=== PATIENT | male | born 1980 | race Caucasian/White ===

== ENCOUNTER 2018-02-27 11:46 | Outpatient (REF) | payer MEDICAID, SELFPAY ==
[2018-02-27 20:52] LABS: Abs Immature Grans 0.01 k/cumm (0.0-0.09); Absolute Basophil Count 0.02 k/cumm (0.0-0.2); Absolute Eosinophil Count 0.11 k/cumm (0.0-0.7); Absolute Lymphocyte Count 1.33 k/cumm (1.2-3.4); Absolute Monocyte Count 0.48 k/cumm (0.11-0.7); Absolute Neutrophil Count 4.13 k/cumm (1.2-6.7); Basophils % 0.3; Eosinophils % 1.8; HCT 39.9 % (40.0-50.0); HGB 12.8 g/dL (13.5-17.5); Immature Grans % 0.2; Lymphocytes % 21.9; Mean Corp. HGB Concentration 32.1 g/dL (32.0-36.0); Mean Corpuscular Volume 90.5 fL (80-95); Mean Platelet Volume 12.4 fL (8.0-11.0); Monocytes % 7.9; Neutrophils % 67.9; Platelet Count 216 x1000/uL (130-400); RBC 4.41 m/cumm (4.50-6.00); RBC Distribution Width 13.4 % (11.8-14.1); White Blood Cell Count 6.08 k/cumm (4.4-10.8)
== END 2018-02-27 11:47 ==
LOC: NCHCN 11:46
PROVIDERS: PCP Specialist/Technologist Athletic Trainer; Visit Provider Specialist/Technologist Athletic Trainer
DX: D53.9 Nutritional anemia, unspecified (principal); Z51.81 Encounter for therapeutic drug level monitoring
CPT/HCPCS: 85025

== ENCOUNTER 2019-07-24 16:51 | Emergency (ER) | payer MEDICAID, SELFPAY ==
[2019-07-24 16:56] VITALS: BP 129/78; PULSE 75; RESP 18; TEMP 36.5; O2SAT 97
--- NOTE | 2019-07-24 17:06 | ED.GENADUL_ITS ---
Discharge Plan Disposition Patient Disposition: HOME Condition: Good Discharge Details Chief Complaint: Laceration Clinical Impression: Laceration of face Primary Care Provider: Vic Martin ED Provider: Gladys Navas Home Meds and New Rx's Prescriptions: Continued Eliquis 5 MG tablet 5 mg PO BID RF: 0 cyclobenzaprine 10 MG tablet 10 mg PO Q8H PRN (Reason: Muscle Spasm) Qty: 13 RF: 0 Discharge Instructions Instructions: Facial Laceration (ED) Additional Instructions: Keep wound clean and dry. Monitor for signs of infection including redness, warmth, drainage, increased pain, fever/chills. If you develop these or other new/worsening symptoms please seek care urgently once again. Sutures are dissolvable and should be out in 1 week. If these do not completely dissolved, you may return to have these removed. Tylenol and/or ibuprofen as needed for discomfort. Referrals: Vic Martin [Primary Care Provider] - Medical Decision Making Patient is a 39-year-old male presenting today with chief complaint of laceration to the lateral aspect of his right eyebrow. Patient reports prior to arrival he was doing dishes when he turned suddenly but suddenly and hit his head against an open cabinet door. Denies loss of consciousness, no headache. Denies any nausea or vomiting. Denies any weakness, visual changes. Unknown last tetanus status. Patient is anticoagulated on Eliquis as he has history of PE. No active bleeding. Last tetanus 2014 On exam, patient has a linear 1.5 cm laceration to lateral aspect of his right eyebrow. This is into subcutaneous tissue. Patient discussed closure options. He declines adhesive and would prefer suture closure. We discussed versus benefits as well as expected procedural steps. Voiced understanding and wished to proceed. Please see procedure note. Patient tolerated procedure well. Wound was copiously irrigated explored to base in bloodless field no foreign body or debris noted. #2 simple interrupted stitches were placed. Discussed wound care in depth. Discussed signs of infection when to seek care urgently once again. All questions and concerns were addressed and is agreement with plan. Ab sorbable stitches were placed. HPI General Mode of arrival: ambulatory . Date/Time Provider Initiated Documentation: 07/24/19 17:06 . Limitations to Documentation: no limitations . Information obtained by: patient, family (large group of family members) and RN notes reviewed . History of Present Illness 39 year old M presents to the emergency department with the chief complaint of laceration above right eyebrow, described as mild, with intensity rated at 3. Quality is described as aching, and is localized to the face. Patient reports no radiation. Patient started experiencing this minute(s) and it has been constant. No relieving factors improve symptom(s), No exacerbating factors reported . Patient notes no other symptoms.. Patient did receive the following treatments prior to arrival, none Related Data Home Medications Medication Instructions Recorded Confirmed Eliquis 5 mg PO BID 12/07/15 07/24/19 cyclobenzaprine 10 mg PO Q8H PRN #13 tab 10/10/17 07/24/19 Previous Rx's Medication Instructions Recorded cyclobenzaprine 10 mg PO Q8H PRN #13 tab 10/10/17 Allergies Allergy/AdvReac Type Severity Reaction Status Date / Time No Known Allergies Allergy Unverified 07/24/19 16:58 General Stated Complaint: Laceration NIRU: 4 Review of Systems Constitutional Constitutional: Reports as per HPI, Denies chills and Denies fever(s) Musculoskeletal Musculoskeletal: Reports as per HPI Integumentary/Breasts Skin/Breast: Reports as per HPI Neurologic Neurologic: Reports as per HPI, Denies sensory deficit and Denies paresthesias [facility] Social History Smoking/Tobacco Use Status: Current every day Drug use: Daily Do you feel safe in your relationship?: Yes Exam Const General: cooperative, healthy appearing, comfortable, no acute distress and well developed Nutritional Appearance: average body habitus and well nourished Orientation: alert and awake [facility] Head: abnormal to inspection, no palpable skull fracture, normocephalic, laceration (facial laceration as drawn below), no palpable skull fracture and no raccoon eyes Head images: 1. 1.5 cm laceration, no FB or debris, deep structures intact. Into subQ tissue. No active bleeding Ears: hearing grossly normal bilaterally Face and sinus: abnormal facial exam (laceration as above, otherwise normal) Resp Effort & Inspection: normal respiratory effort, able to speak in complete sentences and no respiratory distress Cardio Rate: regular rate Rhythm: regular rhythm Skin Trauma: laceration (as above) Neuro General: alert and awake Cognition: normal cognition Speech: speech normal Gait: normal gait Sensory Exam: no sensory deficits noted Psych Appearance: grossly normal and well kempt Mental Status: mental status grossly normal Speech and Movement: speech and movement normal Course Vital Signs Vital signs: Vital Signs Temperature 36.5 C 07/24/19 16:56 Pulse 75 07/24/19 16:56 Respiratory Rate 18 07/24/19 16:56 Blood Pressure 129/78 07/24/19 16:56 Pulse Oximetry 97 07/24/19 16:56 Temperature 36.5 C 07/24/19 16:56 Temperature Source Temporal Artery Scan 07/24/19 16:56 Pulse 75 07/24/19 16:56 Respiratory Rate 18 07/24/19 16:56 Blood Pressure 129/78 07/24/19 16:56 Blood Pressure Position Sitting 07/24/19 16:56 Pulse Oximetry 97 07/24/19 16:56 Oxygen Delivery Method Room Air 07/24/19 16:56 Oxygen Flow Rate 0 07/24/19 16:56 Pain Level 3 07/24/19 16:56 Procedures Laceration Laceration 1: Site: face Side (If applicable): right Size (cm): 1.5 Description: linear Depth: simple, single layer Local Anesthetic: Lidocaine 1% Amount of anesthesia used (mL): 3 Pre-repair: wound explored, irrigated extensively and deep structures intact Skin layer closed with: other (monocryl) Size (cm): 5-0 Number of sutures: 2 Technique: simple, interrupted
== END 2019-07-24 17:49 | disposition home or self-care (01) ==
PROVIDERS: Emergency Provider Physician Assistant; PCP Specialist/Technologist Athletic Trainer
DX: S01.111A Laceration without foreign body of right eyelid and periocular area, initial encounter (principal); W22.09XA Striking against other stationary object, initial encounter; Z79.01 Long term (current) use of anticoagulants
CPT/HCPCS: 12011

== ENCOUNTER 2020-06-06 14:03 | Emergency (ER) | payer MEDICAID, SELFPAY ==
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
[2020-06-06 14:10] VITALS: BP 123/82; PULSE 79; RESP 15; TEMP 36.6; O2SAT 96
--- NOTE | 2020-06-06 14:30 | DI.CT_ITS ---
EXAM: CT CHEST WO CLINICAL HISTORY: fell onto sternum, r/o sternal/rib fx. TECHNIQUE: Imaging Protocol: CT angiography of the chest was performed using pulmonary embolus bernie col. Multi planar reconstructions were performed. CONTRAST MATERIAL: Intravenous: Omnipaque 350 Contrast volume:100 ml Oral: None COMPARISON: CT CHEST FOR PULMONARY EMBOLUS from 10/10/2017 FINDINGS: CHEST: LUNGS:. There is infiltrate in the right lower lobe basal segments posterior basal segment and media l basal segment. No pleural effusion. No pneumothorax. There is also mild infiltrate in the yarn packer ior basal segment of the left lower lobe, also not associated with pleural effusions. Density is see n in the lower right trachea, possibly mucus. No findings in mainstem bronchi. MEDIASTINUM: There is no obvious hilar nor mediastinal adenopathy. No axillary adenopathy. Visualiz ed thyroid unremarkable. Visualized thyroid unremarkable. CARDIAC: Heart size upper normal. No pericardial effusion. Caliber of the thoracic aorta is within normal limits. Visualized upper abdomen: No adrenal mass is evident. OSSEOUS: There is a fracture of the sternum. Mild displacement. This transverse fracture is located 4 centimetres below the angle of Manny. There is a mild retrosternal hematoma at this level. No pe ricardial effusion. . IMPRESSION: 1. There is a mildly displaced transverse fracture of the sternum located 4 centimetres below the ang le of Manny. There is a mild retrosternal hematoma. No pericardial effusion. No pneumothorax. 2. Mild infiltrates in both lung bases but no pleural effusions. Discussed with ER provider following completion of the study 06/06/2020. 3. RADIATION DOSE DELIVERED: 691.51mGy.cm Total DLP DATA REPOSITORY: All CT scans at this facility are submitted to the National Radiology Data Registry (NRDR) Dose Index Registry (DIR) with the [employer] (ACR). RADIATION OPTIMIZATION: All CT scans at this facility use at least one of these dose optimization te chniques: automated exposure control; mA and/or kV adjustment per patient size (includes targeted exa ms where dose is matched to clinical indication); or iterative reconstruction.
[2020-06-06 14:31] VITALS: PULSE 92; RESP 20
[2020-06-06 14:40] VITALS: PULSE 74; RESP 20
[2020-06-06 14:50] VITALS: PULSE 76; RESP 19
--- NOTE | 2020-06-06 15:15 | RT.EKG_ITS ---
APPROVED REPORT Exam: Resting ECG Patient Location: E HR:76 bpm ECG Measurements Heart Rate 76 AXIS [place] 163 P 27 QRSd 99 QRS 50 QT 377 T 3 QTc 425 Conclusion Sinus rhythm...normal P axis, V-rate 60- 99 I have reviewed and interpreted ECG and agree with software generated interpretation.
[2020-06-06 16:09] LABS: Abs Immature Grans 0.05 10^3/uL (0.0-0.06); Absolute Lymphocyte Count 1.48 10^3/uL (1.2-3.4); Absolute Monocyte Count 0.94 10^3/uL (0.1-0.8); Basophils % 0.2; Eosinophils % 0.2; HCT 43.2 % (40.0-50.0); HGB 13.9 g/dL (13.5-17.5); Immature Grans % 0.4; Lymphocytes % 12.3; MCH 29.2 pg (27.0-33.0); MCHC 32.2 % (32.0-36.0); MCV 90.8 fL (80-95); MPV 10.5 fL (8.0-11.0); Monocytes % 7.8; Neutrophils % 79.1; Nucleated RBC 0 %; Platelet Count 174 10^3/uL (130-400); RBC 4.76 10^6/uL (4.36-5.78); RDW 13.3 % (11.8-14.1); RDW-SD 44.6 fL; WBC 12.05 10^3/uL (4.4-10.8)
[2020-06-06 16:25] LABS: ALT 22 U/L (16-63); AST 25 U/L (15-37); Albumin 3.2 g/dL (3.4-5.0); Alkaline Phosphatase 96 U/L (46-116); Anion Gap 3.1 mmol/L (3-11); BUN 9 mg/dL (7-18); Bilirubin, Total 0.4 mg/dL (0.2-1.0); CO2 31.9 mmol/L (21.0-32.0); CREATININE 0.81 mg/dL (0.70-1.30); Calcium 8.9 mg/dL (8.5-10.1); Chloride 101 mmol/L (98-107); Glucose 97 mg/dL (74-106); Sodium 136 mmol/L (136-145); Total Protein 7.4 g/dL (6.4-8.2); Troponin I < 0.05 ng/mL (<0.06)
[2020-06-06 16:27] LABS: Absolute Basophil Count 0.02 10^3/uL (0.0-0.2); Absolute Eosinophil Count 0.02 10^3/uL (0.0-0.7); Absolute Neutrophil Count 9.53 10^3/uL (1.2-6.7)
[2020-06-06 16:29] LABS: ETHANOL BLOOD < 3.0 mg/dL (<3)
--- NOTE | 2020-06-06 16:30 | NUR.NOTE ---
pt admitted to nurse that he has slipped and has been using heroin . he did not want us to see his arms Nursing Note:
--- NOTE | 2020-06-06 16:35 | DI.VRAD_ITS ---
PROCEDURE INFORMATION: Exam: CT Chest Without Contrast; Diagnostic Exam date and time: 06/06/2020 3:00 PM Age: 40 years old Clinical indication: Injury or trauma; Blunt trauma (contusions or hematomas); Patient HX: Fall onto sternum; Additional info: R/O sternal/rib FX TECHNIQUE: Imaging protocol: Diagnostic computed tomography of the chest without contrast. COMPARISON: CT CHEST FOR PULMONARY EMBOLUS 10/10/2017 6:29 PM FINDINGS: Lungs: Linear scarring versus atelectasis in the lower lobes. Pleural space: No pleural effusion or pneumothorax. Heart: Unremarkable. No pericardial effusion. Mediastinal space: Approximately 9.3 x 0.4 x 0.7 cm retrosternal hematoma. Aorta: Unremarkable. Lymph nodes: No enlarged lymph nodes. Bones/joints: Mildly displaced acute mid sternal body fracture with approximately 0.3 cm posterior displacement. Soft tissues: Prominent subcutaneous fat stranding in the presternal midline chest soft tissues, likely contusion. IMPRESSION: 1. Mildly displaced acute mid sternal body fracture with approximately 0.3 cm posterior displacement. 2. Approximately 9.3 x 0.4 x 0.7 cm retrosternal hematoma. Dictated and Authenticated by: Olvin Mccabe MD. Ordering:JEWELL Gaines MD
== END 2020-06-06 16:58 | disposition left against medical advice (07) ==
PROVIDERS: Emergency Provider Physician Assistant; PCP Family Medicine
DX: S22.22XA Fracture of body of sternum, initial encounter for closed fracture (principal); W01.190A Fall on same level from slipping, tripping and stumbling with subsequent striking against furniture, initial encounter; Z53.29 Procedure and treatment not carried out because of patient's decision for other reasons; Z86.711 Personal history of pulmonary embolism; Z79.01 Long term (current) use of anticoagulants; F11.10 Opioid abuse, uncomplicated
CPT/HCPCS: 36415; 71250; 80053; 93005; 99284; 80320; 83735; 84484; 85025; 93010; 99285

== ENCOUNTER 2023-12-31 10:04 | Outpatient (REF) | payer MEDICAID, SELFPAY ==
--- OUTSIDE RECORDS SUMMARY | 2024-01-01 10:06 | XMS_ITS | Continuity of Care Document ---
Author Name Unknown Organization [facility] Address [address] [place] [address] Encounter LTTL_NC FIN NBR [id number] Date(s): 08/08/23 - 08/08/23 [facility] [address] [place] [address]- Encounter Diagnosis Abscess of lip(Discharge Diagnosis) - 08/08/23 Diseases of lips(Final) - Nicotine dependence, cigarettes, uncomplicated(Final) - Discharge Disposition: Home or Self Care Attending Physician: Jun Pena MD Admitting Physician: Jun Pena MD Allergies, Adverse Reactions, Alerts No Known Medication Allergies Assessment and Plan Extracted from: Title:ED Provider Note Author:PETTY Gibson RN Date:08/08/23 Assessment/Plan 1.??Abscess of lip??K13.0 Orders: Bactrim DS 800 mg-160 mg oral tablet, 1 tab, Oral, every 12 hr, X 10 days, # 20 tab, 0 Refill(s), 08/18/23 17:47:00 EST, Pharmacy: [id number], 182.88, cm, 08/08/23 17:10:00 EST, Height, 97.52, kg, 08/08/23 17:15:00 EST, Weight Dosing Bactrim DS 800 mg-160 mg oral tablet, 1 tab, Oral, Tab, BID for 30 days, Antibiotic Indication Skin/soft tissue, wound infection, First Dose: 08/08/23 21:00:00 EST, Stop Date: 09/07/23 20:59:00 EST, Physician Stop, Routine Wound Culture, Abscess, Lip, Stat collect, ST - Stat, 08/08/23 17:44:00 EST, Once, Nurse collect, Print Label Patient Education Skin Abscess Functional Status 08/08/23 Family Member Travel History No recent t ravel Recent Travel History No recent travel Other exposure to Infectious Disease Non e Medications Bactrim DS 800 mg-160 mg oral tablet 1 tab, Oral, every 12 hr, X 10 days, # 20 tab, 0 Refill(s), 08/18/23 4:47:00 PM ROD POINTER, Pharmacy: [id number], 182.88, cm, 08/08/23 17:10:00 EST, Height, 97.52, kg, 08/08/23 17:15:00 EST, Weight Dosing Start Date: 08/08/23 Stop Date: 08/18/23 Status: Ordered cephalexin 500 mg oral capsule 500 mg = 1 cap, Oral, Daily, X 7 days, # 28 cap, 0 Refill(s), 08/15/23 7:59:00 AM ROD POINTER Start Date: 08/08/23 Stop Date: 08/15/23 Status: Ordered Eliquis 5 mg oral tablet 3, Oral, BID, # 60 tab, 0 Refill(s) Start Date: 08/08/23 Status: Ordered valACYclovir 1 g oral tablet 1 g = 1 tab, Oral, every 12 hr, X 7 days, # 14 tab, 0 Refill(s), 08/15/23 4:15:00 PM ROD POINTER Start Date: 08/08/23 Stop Date: 08/15/23 Status: Ordered Mental Status 08/08/23 Eye Opening Response [place] Spontaneous ly Best Verbal Response [place] Oriented Best Motor Response [place] Obeys comman ds [place] Coma Score 15 Results Orders for Microbiology Reports Name Date Wound Culture 08/08/23 Microbiology Reports TEST:Wound Culture STATUS:Order in Progress BODY SITE:Lip SOURCE:Abscess COLLECTED DATE/TIME:08/08/23 5:45 PM PRELIMINARY REPORT Many Gram Positive Cocci Presumptive MRSA STAIN REPORT Moderate White Blood Cells Rare Gram Positive Cocci Vital Signs Most recent to oldest [Reference Range]: 1 Temperature Temporal Artery [36-38 Deg C ] 36.3 Deg C (08/08/23 4:55 PM) Peripheral Pulse Rate [60-100 bpm] 82 bp m (08/08/23 4:55 PM) Respiratory Rate [12-24 br/min] 16 br/mi n (08/08/23 4:55 PM) Blood Pressure [90-140/60-90 mmHg] 145/9 1mmHg *HI* (08/08/23 4:55 PM) Mean Arterial Pressure, Cuff [70-110 mmH g] 109 mmHg (08/08/23 4:55 PM) Weight 97.52 kg (08/08/23 4:55 PM) Weight Dosing 97.520 kg (08/08/23 4:55 PM) Height 182.88 cm (08/08/23 4:55 PM) Body Mass Index 29.16 kg/m2 (08/08/23 4:55 PM) Social History Social History Type Response Tobacco Current everyday tob acco user Tobacco Use:. 1ppd per day. Sex Hospital Discharge Instructions Patient Education 08/08/2023 16:48:44 Skin Abscess Skin Abscess A skin abscess is an infected area on or under your skin that contains a collection of pus and other material. An abscess may also be called a furuncle, carbuncle, or boil. An abscess can occur in oron almost any part of your body. Some abscesses break open (rupture) on their own. Most continue to get worse unless they are treated. The infection can spread deeper into the body and eventually into your blood, which can make you feel ill. Treatment usually involves draining the abscess. What are the causes? An abscess occurs when germs, like bacteria, pass through your skin and cause an infection. This may be caused by: ??? A scrape or cut on your skin. ??? A puncture wound through your skin, including a needle injection or insect bite. ??? Blocked oil or sweat glands. ??? Blocked and infected hair follicles. ??? A cyst that forms beneath your skin (sebaceous cyst) and becomes infected. What increases the risk? This condition is more likely to develop in people who: ??? Have a weak body defense system (immune system). ??? Have diabetes. ??? Have dry and irritated skin. ??? Get frequent injections or use illegal IV drugs. ??? Have a foreign body in a wound, such as a splinter. ??? Have problems with their lymph system or veins. What are the signs or symptoms? Symptoms of this condition include: ??? A painful, firm bump under the skin. ??? A bump with pus at the top. This may break through the skin and drain. Other symptoms include: ??? Redness surrounding the abscess site. ??? Warmth. ??? Swelling of the lymph nodes (glands) near the abscess. ??? Tenderness. ??? A sore on the skin. How is this diagnosed? This condition may be diagnosed based on: ??? A physical exam. ??? Your medical history. ??? A sample of pus. This may be used to find out what is causing the infection. ??? Blood tests. ??? Imaging tests, such as an ultrasound, CT scan, or MRI. How is this treated? A small abscess that drains on its own may not need treatment. Treatment for larger abscesses may include: ??? Moist heat or heat pack applied to the area several times a day. ??? A procedure to drain the abscess (incision and drainage). ??? Antibiotic medicines. For a severe abscess, you may first get antibiotics through an IV and then change to antibiotics by mouth. Follow these instructions at home: Medicines ??? Take pnfo-bdn-idsgvln and prescription medicines only as told by your health care provider. ??? If you were prescribed an antibiotic medicine, take it as told by your health care provider. Donot stop taking the antibiotic even if you start to feel better. Abscess care ??? If you have an abscess that has not drained, apply heat to the affected area. Use the heat source that your health care provider recommends, such as a moist heat pack or a heating pad. ??? Place a towel between your skin and the heat source. ??? Leave the heat on for 20???30 minutes. ??? Remove the heat if your skin turns bright red. This is especially important if you are unable to feel pain, heat, or cold. You may have a greater risk of getting burned. ??? Follow instructions from your health care provider about how to take care of your abscess. Makesure you: ??? Cover the abscess with a bandage (dressing). ??? Change your dressing or gauze as told by your health care provider. ??? Wash your hands with soap and water before you change the dressing or gauze. If soap and water are not available, use hand mutual fund analyst. ??? Check your abscess every day for signs of a worsening infection. Check for: ??? More redness, swelling, or pain. ??? More fluid or blood. ??? Warmth. ??? More pus or a bad smell. General instructions ??? To avoid spreading the infection: ??? Do not share personal care items, towels, or hot tubs with others. ??? Avoid making skin contact with other people. ??? Keep all follow-up visits as told by your health care provider. This is important. Contact a health care provider if you have: ??? More redness, swelling, or pain around your abscess. ??? More fluid or blood coming from your abscess. ??? Warm skin around your abscess. ??? More pus or a bad smell coming from your abscess. ??? Muscle aches. ??? Chills or a general ill feeling. Get help right away if you: ??? Have severe pain. ??? See red streaks on your skin spreading away from the abscess. ??? See redness that spreads quickly. ??? Have a fever or chills. Summary ??? A skin abscess is an infected area on or under your skin that contains a collection of pus and other material. ??? A small abscess that drains on its own may not need treatment. ??? Treatment for larger abscesses may include having a procedure to drain the abscess and taking an antibiotic. This information is not intended to replace advice given to you by your health care provider. Make sure you discuss any questions you have with your health care provider. Document Revised: 03/26/2022 Document Reviewed: 03/26/2022 Elsevier Patient Education ?? 2022 [employer] Discharge instructions * Event Display: Discharge Instructions Physician Emergency department Note * Catherine Shelley APRN: PERFORM Event Display: ED Note Physician Authored Date: [id number] ANTOINE HAIRSTON :1980 Age:43 years Sex:Male Visit Date:08/08/2023 Basic Information Time Seen: Catherine Shelley APRN / 08/08/2023 17:12 Chief Complaint Pt had a pimple on his lower lip saturday that he popped, saturday morning he noticed swelling. It has worsened throughout the week. Saturday he went to pcp and was rx abx. Feels that it is worse today and was told to come to ER. History Of Present Illness: Patient is a 43-year-old male who presents today with a chief complaint??of increased pain??of his lower lip and swelling. ??He reports on Saturday he noted a small lemus??to the??lower lip which he popped. ??He states awakening Saturday morning with increased swelling he was evaluated??on Saturday at his??primary care office after he was having worsening pain and swelling. ??He was started on valacyclovir and cephalexin. ??He states that he has??not noted improvement and comes for evaluation. Review of Systems: see hpi Physical Exam Vitals & Measurements T:??36.3?C ??(Temporal Artery)?? HR:??82??(Peripheral)?? RR:??16?? BP:??145/91?? SpO2:??100%?? HT:??182.88??cm?? WT:??97.52??kg?? BMI:??29.16?? Pain Score:??6?? O2 Therapy:??Room air?? Left lower lip and is??markedly swollen, positive exudate??from open area of the right??lower lip Medical Decision Making: Patient was evaluated for abscess to the lower lip. ??He has been on cephalexin and valacyclovir for a few days, substantial swelling erythema, positive fluctuance, small incision was made to the lipsee procedural documentation. ??Expressed moderate amount of purulent discharge, culture is??pending. ??He was started on Bactrim I encouraged him to do warm compresses take acetaminophen/ibuprofen for pain??and follow-up with his primary care. ??Return precautions were provided Procedure PROCEDURE NOTE: Incision and Drainage of??Abscess? Performed by: Self Indication:??Abscess? [place] Protocol: Time out was performed. Patient, side, site and procedure was verified. ? The affected location was anesthetized with??1% lidocaine??local anesthesia and the abscess was incised using an??11??-blade scalpel,?2mls of??purulent??material was expressed. Loculations were broken up using blunt dissection and the cavity irrigated. The patient tolerated the procedure well and there were no apparent complications. A sterile dressing was applied. ? Ultrasound guided:??No? Cultures Obtained:??Yes No Qualifying Data Assessment/Plan 1.??Abscess of lip??K13.0 Orders: Bactrim DS 800 mg-160 mg oral tablet, 1 tab, Oral, every 12 hr, X 10 days, # 20 tab, 0 Refill(s), 08/18/23 17:47:00 EST, Pharmacy: [id number], 182.88, cm, 08/08/23 17:10:00 EST, Height, 97.52, kg, 08/08/23 17:15:00 EST, Weight Dosing Bactrim DS 800 mg-160 mg oral tablet, 1 tab, Oral, Tab, BID for 30 days, Antibiotic Indication Skin/soft tissue, wound infection, First Dose: 08/08/23 21:00:00 EST, Stop Date: 09/07/23 20:59:00 EST, Physician Stop, Routine Wound Culture, Abscess, Lip, Stat collect, ST - Stat, 08/08/23 17:44:00 EST, Once, Nurse collect, Print Label Patient Education Skin Abscess Medication Reconciliation New Prescription sulfamethoxazole-trimethoprim (Bactrim DS 800 mg-160 mg oral tablet)1 tab Oral (given by mouth) every 12 hours for 10 Days. Refills: 0. ?? Unchanged apixaban (Eliquis 5 mg oral tablet)3 Oral (given by mouth) 2 times a day. ?? cephalexin (cephalexin 500 mg oral capsule)1 Capsules Oral (given by mouth) every day for 7 Days. ?? valACYclovir (valACYclovir 1 g oral tablet)1 tab Oral (given by mouth) every 12 hours for 7 Days. Problem List/Past Medical History Ongoing Tobacco user Historical No qualifying data Medication Administration Given Bactrim DS 800 mg-160 mg oral tablet, 1 tab, Oral Allergies No Known Medication Allergies Social History Alcohol Current, Beer, 1-2 times per month Electronic Cigarette/Vaping Electronic Cigarette Use: Never. Substance Use Current, Marijuana, Daily Tobacco Current everyday tobacco user Tobacco Use:. 1ppd per day. Electronically Signed on 08/08/23 06:07 PM Catherine Shelley APRN Emergency department Discharge instructions * Catherine Shelley APRN: PERFORM Event Display: ED Discharge Information Authored Date: [id number] ANTOINE HAIRSTON :1980 Age:43 years Sex:Male Visit Date:08/08/2023 Discharge Instructions We would like to thank you for allowing us to assist you with your healthcare needs. The following includes patient education materials and information regarding your injury/illness. Discharge Vitals Temperature??(Temporal Artery) 97.3 ??F (36.3 ??C) Heart Rate??(Peripheral) 82 Respiratory Rate?? 16 Blood Pressure?? 145/91?? Height?? 72.00 in (182.88 cm) Weight?? 215.03 lb (97.52 kg) BMI?? 29.16 Allergies No Known Medication Allergies What to Do Next Instructions from Your Care Team Continue warm compresses to the lip, Tylenol or ibuprofen for pain or fever.?? Bactrim DS 1 tab p.o. twice daily for 10 days, you the valacyclovir. ??Follow-up with your primary care for lack of improvement. ??Seek urgent or emergent care for any worsening or concerning symptoms such as fever, increased pain or swelling or any other concerns. You were treated today on an emergency basis; it may be mckinley to contact your primary care provider to notify them of your visit today. You may have been referred to your regular doctor or a specialist, please follow up as instructed. If your condition worsens or you can't get in to see the doctor, contact the Emergency Department. Medications What How Much When Instructions Next Dose New sulfamethoxazole-trimethoprim (Bactrim DS 800 mg-160 mg oral tablet) 1 tab Oral (given by mouth) Every 12 hours Duration: 10 Days Pickup at [facility] Unchanged apixaban (Eliquis 5 mg oral tablet) 3 Oral (given by mouth) 2 times a day Unchanged cephalexin (cephalexin 500 mg oral capsule) 1 Capsules Oral (given by mouth) Every day Duration: 7 Days Unchanged valACYclovir (valACYclovir 1 g oral tablet) 1 tab Oral (given by mouth) Every 12 hours Duration: 7 Days Pharmacy Information [facility]: [address], [place] [id number] [phone] Education Materials Skin Abscess A skin abscess is an infected area on or under your skin that contains a collection of pus and other material. An abscess may also be called a furuncle, carbuncle, or boil. An abscess can occur in oron almost any part of your body. Some abscesses break open (rupture) on their own. Most continue to get worse unless they are treated. The infection can spread deeper into the body and eventually into your blood, which can make you feel ill. Treatment usually involves draining the abscess. What are the causes? An abscess occurs when germs, like bacteria, pass through your skin and cause an infection. This may be caused by: ? A scrape or cut on your skin. ? A puncture wound through your skin, including a needle injection or insect bite. ? Blocked oil or sweat glands. ? Blocked and infected hair follicles. ? A cyst that forms beneath your skin (sebaceous cyst) and becomes infected. What increases the risk? This condition is more likely to develop in people who: ? Have a weak body defense system (immune system). ? Have diabetes. ? Have dry and irritated skin. ? Get frequent injections or use illegal IV drugs. ? Have a foreign body in a wound, such as a splinter. ? Have problems with their lymph system or veins. What are the signs or symptoms? Symptoms of this condition include: ? A painful, firm bump under the skin. ? A bump with pus at the top. This may break through the skin and drain. Other symptoms include: ? Redness surrounding the abscess site. ? Warmth. ? Swelling of the lymph nodes (glands) near the abscess. ? Tenderness. ? A sore on the skin. How is this diagnosed? This condition may be diagnosed based on: ? A physical exam. ? Your medical history. ? A sample of pus. This may be used to find out what is causing the infection. ? Blood tests. ? Imaging tests, such as an ultrasound, CT scan, or MRI. How is this treated? A small abscess that drains on its own may not need treatment. Treatment for larger abscesses may include: ? Moist heat or heat pack applied to the area several times a day. ? A procedure to drain the abscess (incision and drainage). ? Antibiotic medicines. For a severe abscess, you may first get antibiotics through an IV and then change to antibiotics by mouth. Follow these instructions at home: Medicines ? Take kcww-jic-pbberbm and prescription medicines only as told by your health care provider. ? If you were prescribed an antibiotic medicine, take it as told by your health care provider. Do notstop taking the antibiotic even if you start to feel better. Abscess care ? If you have an abscess that has not drained, apply heat to the affected area. Use the heat source that your health care provider recommends, such as a moist heat pack or a heating pad. ? Place a towel between your skin and the heat source. ? Leave the heat on for 20???30 minutes. ? Remove the heat if your skin turns bright red. This is especially important if you are unable to feel pain, heat, or cold. You may have a greater risk of getting burned. ? Follow instructions from your health care provider about how to take care of your abscess. Make sure you: ? Cover the abscess with a bandage (dressing). ? Change your dressing or gauze as told by your health care provider. ? Wash your hands with soap and water before you change the dressing or gauze. If soap and water are not available, use hand mutual fund analyst. ? Check your abscess every day for signs of a worsening infection. Check for: ? More redness, swelling, or pain. ? More fluid or blood. ? Warmth. ? More pus or a bad smell. General instructions ? To avoid spreading the infection: ? Do not share personal care items, towels, or hot tubs with others. ? Avoid making skin contact with other people. ? Keep all follow-up visits as told by your health care provider. This is important. Contact a health care provider if you have: ? More redness, swelling, or pain around your abscess. ? More fluid or blood coming from your abscess. ? Warm skin around your abscess. ? More pus or a bad smell coming from your abscess. ? Muscle aches. ? Chills or a general ill feeling. Get help right away if you: ? Have severe pain. ? See red streaks on your skin spreading away from the abscess. ? See redness that spreads quickly. ? Have a fever or chills. Summary ? A skin abscess is an infected area on or under your skin that contains a collection of pus and other material. ? A small abscess that drains on its own may not need treatment. ? Treatment for larger abscesses may include having a procedure to drain the abscess and taking an antibiotic. This information is not intended to replace advice given to you by your health care provider. Make sure you discuss any questions you have with your health care provider. Document Revised: 03/26/2022 Document Reviewed: 03/26/2022 [employer] Patient Education ?? 2022 [employer]. Patient/Soft Hat Binder Signature Patient Name:ANTOINE HAIRSTON I have received this information and my questions have been answered. Patient/Soft Hat Binder Name: Patient/Soft Hat Binder Signature: Relationship to Patient: Witness Name/Signature: [facility] Signed on: 08/08/2023 17:49 ESTSigned by:KATHARINA
== END 2023-12-31 10:05 | disposition home or self-care (01) ==
LOC: LBN 10:04
PROVIDERS: PCP Family Medicine; Visit Provider Nurse Practitioner Family
DX: L03.114 Cellulitis of left upper limb (principal)
CPT/HCPCS: 87077; 87070; 87205

== ENCOUNTER 2024-05-12 12:09 | Day surgery (SDC) | payer MEDICAID, SELFPAY ==
--- NOTE | 2024-05-12 10:13 | PDOC.DSDIS_ITS ---
Date of service: 05/12/24 Time of Service: 13:26 Discharge Plan Disposition Patient Disposition: Home Condition: Good Discharge Details Reason For Visit: Left hand cyst Attending Provider: Hector Jacobs Primary Care Provider: ZULLY LOPEZ Home Meds and New Rx's Prescriptions: New acetaminophen 500 mg tablet 500 mg PO Q6H PRN PRN (Reason: pain) Qty: 40 3RF ibuprofen 600 mg tablet 600 mg PO TID PRN (Reason: pain) Qty: 90 3RF Continued buprenorphine-naloxone 8-2 mg tablet, sublingual 1 tab sublingual DAILY Eliquis 5 mg tablet 5 mg PO BID Discharge Instructions Additional Instructions: Cyst Excision Discharge Instructions Activity: You should keep the hand elevated as much as possible for the first few days. You may use the other fingers as tolerated but avoid trying to do too much too soon. You may perform light activities with the dressing in place. You have no formal restrictions Dressing/Cast: Your dressing should stay in place for at least 48 hours. After 48 hours you may remove, clean area and cover with a light gauze dressing or band-aide. Medications: - You should take Tylenol and Ibuprofen for baseline pain control. - You may apply ice over the wound to assist with pain control and swelling. Follow-up: 7-10 days Stand Alone Forms: Lydia Chavira ([facility]) Referrals: Hector Jacobs MD [ [facility] STAFF PHYSICIAN] - 05/22/24 9:30 am Activity:: Elevate Remove Dressings/Wound Care:: 48 hours Shower/Bathe:: 48 hours Diet:: As Tolerated Discharge Orders Discharge Orders: Discharge Order (Routine); Ordered 05/12/24 Ordered By: Carolina Treadwell
[2024-05-12 12:19] VITALS: BP 126/72; PULSE 68; RESP 18; TEMP 35.7; O2SAT 99
[2024-05-12] MEDS: Lidocaine 1% Multi-Dose W/EPI 1/100,000 50 ML VIAL (13:31)
[2024-05-12] MEDS: Sodium Bicarbonate 50 MEQ/50 ML VIAL (13:31)
[2024-05-12 13:56] VITALS: BP 124/71; PULSE 65; RESP 20; TEMP 36.3; O2SAT 99
--- NOTE | 2024-05-12 14:35 | ROE_ITS ---
Date of service: 05/12/24 Time of Service: 13:15 Operative Note Operative Note DATE OF PROCEDURE: 05/12/24 PRE-OP DIAGNOSIS: Left Hand - 1st Webspace Mass POST-OP DIAGNOSIS: same PROCEDURE: Excision of mass of left hand - first webspace SURGEON: Hector Jacobs ANESTHESIA TYPE: Local By Surgeon Refer to Anesthesia Record ESTIMATED BLOOD LOSS: 2 PATHOLOGY: none sent COMPLICATIONS: None Patient was transported to: same day Patient's condition: stable Indications: I have seen Godfrey in clinic for a painful mass about the left hand, first webs pace. He has had this for quite some time but saw that it got enlarged and infected. He was quite painful during that time. It has gotten better. However, he has this persistent area which does interfere with daily activities and he would like it removed. Therefore, discussed an excision of this mass with him. I discussed the technical details. I reviewed the risk to include bleeding, infection, pain, stiffness, recurrence. Despite these risks, the patient elected to proceed. Findings: There is a hardened area which look to be like an inclusion cyst or epidermoid cyst at the level of the epidermis and just deep to it. There is also a cystic structure associated with it. This was all resected and hole. Procedure Description: Godfrey was greeted in the preoperative holding area where the correct side was identified and marked. The consent was reviewed with the patient and signed. All questions were answered. He was taken back to the operating room. The patient was placed into the supine position on the operating room table with the left arm on an arm board. All bony prominences were well padded. No prophylactic antibiotics were administered since this was a clean, elective hand surgical case. The left arm was then prepped with Chloraprep and draped in a standard fashion with U-drape. A timeout to confirm correct identity, side and site, procedure, allergies, anesthesia, and medical concerns was performed. The surgical site was marked as a longitudinal incision directly over the mass and previous wound. This area was then anesthetized with 1% Lidocaine. The patient tolerated this well and once the anesthetic had setup, the procedure began. A longitudinal incision was made through skin only, approximately 1cm. Immediately adjacent and somewhat connected to the epidermis was this rounded mass. This was approximately 3 to 4 mm in diameter. It was dissected from the surrounding tissue and around the edge. There is a cystic capsule associated with that which was tracked deep and slightly dorsal. This was fully released from the skin and excised. It had the appearance of an epidermoid cyst. The cystic structure is also fully identified and dissected out where it was also removed. There was significant thickness of the skin in this area, callosity, over the mass. However, it did not appear to be cystic structure. The wound was then thoroughly irrigated. The skin was closed with a buried, subcuticular 3-0 Monocryl. This was reinforced with skin glue. The wound was dressed with gauze and a Conform dressing. The patient tolerated the procedure well and was returned to the Same Day Surgery area in a stable condition suffering no known complication.
== END 2024-05-12 12:10 | disposition home or self-care (01) ==
LOC: SUR 06-10 12:10
PROVIDERS: PCP Nurse Practitioner Family; Visit Provider Student in an Organized Health Care Education/Training Program
PROC: (CPT 26160; principal; 2024-05-12 14:45)
DX: L72.0 Epidermal cyst (principal)
CPT/HCPCS: 11420; J2004

== ENCOUNTER 2025-02-10 14:44 | Outpatient (REF) | payer MEDICAID, SELFPAY ==
[2025-02-10 15:30] LABS: HCT 39.4 % (40.0-50.0); HGB 12.9 g/dL (13.5-17.5); MCH 29.9 pg (27.0-33.0); MCHC 32.7 % (32.0-36.0); MCV 91 fL (80-95); MPV 11.2 fL (8.0-11.0); Platelet Count 172 10^3/uL (130-400); RBC 4.31 10^6/uL (4.36-5.78); RDW 13.2 % (11.8-14.1); RDW-SD 44.9 fL; WBC 5.92 10^3/uL (4.4-10.8)
[2025-02-10 16:57] LABS: ALT 21 U/L (16-63); AST 30 U/L (15-37); Albumin 3.8 g/dL (3.4-5.0); Alkaline Phosphatase 105 U/L (46-116); Anion Gap 7.6 mmol/L (3-11); BUN 20 mg/dL (7-18); Bilirubin, Total 0.9 mg/dL (0.2-1.0); CO2 25.4 mmol/L (21.0-32.0); Calcium 9.3 mg/dL (8.5-10.1); Chloride 105 mmol/L (98-107); Estimated GFR 116.52 (mL/min/1.73m2); Glucose 94 mg/dL (74-106); Potassium 4.5 mmol/L (3.5-5.1); Sodium 138 mmol/L (136-145); TSH (W/Ref FT4) 2.32 uIU/mL (0.36-3.74); Total Protein 7.3 g/dL (6.4-8.2)
== END 2025-02-10 14:45 | disposition home or self-care (01) ==
LOC: NCHCN 14:44
PROVIDERS: PCP Nurse Practitioner Family; Visit Provider Nurse Practitioner Family
DX: R42 Dizziness and giddiness (principal)
CPT/HCPCS: 80053; 85027; 84443